=== PATIENT | female | born 1945 | race Caucasian/White ===

== ENCOUNTER → 2023-06-02 10:08 | Outpatient (BNVA) | payer MEDICARE, SELFPAY | PROVIDERS: Family Provider Physician Assistant Medical; PCP Family Medicine; Visit Provider Podiatrist Foot & Ankle Surgery | DX: S82.861A Displaced Maisonneuve's fracture of right leg, initial encounter for closed fracture (principal); X58.XXXA Exposure to other specified factors, initial encounter | CPT/HCPCS: 99203 ==

== ENCOUNTER → 2023-06-22 13:57 | Outpatient (BNVA) | payer MEDICARE, SELFPAY | PROVIDERS: Family Provider Physician Assistant Medical; PCP Family Medicine; Visit Provider Podiatrist Foot & Ankle Surgery | DX: S82.861A Displaced Maisonneuve's fracture of right leg, initial encounter for closed fracture (principal); X58.XXXA Exposure to other specified factors, initial encounter | CPT/HCPCS: 73590; 73610; 99213 ==

== ENCOUNTER → 2023-07-06 11:08 | Outpatient (BNVA) | payer MEDICARE, SELFPAY | PROVIDERS: Family Provider Physician Assistant Medical; PCP Family Medicine; Visit Provider Podiatrist Foot & Ankle Surgery | DX: S82.861A Displaced Maisonneuve's fracture of right leg, initial encounter for closed fracture (principal); X58.XXXA Exposure to other specified factors, initial encounter | CPT/HCPCS: 73590 ==

== ENCOUNTER 2024-05-31 20:24 | Emergency (ER) | payer MEDICARE, SELFPAY ==
[2024-05-31 20:27] VITALS: BP 120/58; PULSE 92; RESP 17; TEMP 36.7; O2SAT 98; BMI 27.4
--- NOTE | 2024-05-31 20:36 | ECG_ITS ---
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 Measurements Intervals [place] Rate: 61 P: 186 MT: 203 QRS: 16 QRSD: 89 T: 54 QT: 384 QTc: 387 Interpretive Statements SUPRAVENTRICULAR RHYTHM WITH BASELINE ARTIFACT NONSPECIFIC T-WAVE ABNORMALITY Compared to ECG 05/07/2016 11:44:46 T-wave abnormality now present Sinus tachycardia no longer present Myocardial infarct finding no longer present Electronically Signed On 06-02-2024 20:10:01 [employer] by Leon Real M.D. [email or web address]
--- NOTE | 2024-05-31 20:36 | ED_ITS ---
HPI - Syncope 2 General: Chief Complaint: Syncope Stated Complaint: syncope Time Seen by Provider: 05/31/24 20:25 History of Present Illness: Patient brought in by EMS for complaints of a syncopal episode. Patient was out eating with her family when she suddenly had a syncopal episode and she was out of it for approximately 3 minutes when she came to the nose she had a thready pulse and a low blood pressure. EMS arrived performed twelve-lead was essentially benign per them. Patient's blood pressure improved as did her pulse. Patient arrived to the ER with feeling almost back to normal. Patient [place] any chest pain nausea vomiting diarrhea shortness of breath Related Data Home Medications Medication Instructions Recorded Confirmed amlodipine 2.5 mg tablet 2.5 mg PO DAILY 06/02/23 07/06/23 atorvastatin 10 mg tablet 10 mg PO DAILY 06/02/23 07/06/23 calcium carbonate 600 mg PO DAILY 06/02/23 07/06/23 gabapentin 300 mg capsule 300 mg PO BID 06/02/23 07/06/23 letrozole 2.5 mg tablet 2.5 mg PO DAILY 06/02/23 07/06/23 levocetirizine 5 mg tablet 5 mg PO DAILY 06/02/23 07/06/23 metoprolol tartrate 25 mg tablet 12.5 mg PO BID 06/02/23 07/06/23 Allergies Allergy/AdvReac Type Severity Reaction Status Date / Time No Known Allergies Allergy Verified 05/31/24 20:36 Review of Systems 2 General: Reports: 10 or more systems reviewed and unremarkable except in HPI and below Physical Exam 2 Const: COMMON NORMALS: no acute distress, average body habitus, patient oriented x3, no limitations, healthy appearing, alert and well nourished HENMT: COMMON NORMALS: normocephalic, atraumatic, hearing grossly normal bilaterally, external ears normal, Normal external nose present and moist oral mucous membranes HEAD & SCALP: normocephalic and atraumatic NOSE: Normal external nose present EXTERNAL EAR: Yes external ears normal Neck/C-Spine: COMMON NORMALS: full ROM, no lymphadenopathy, supple, no meningeal signs, no JVD and Thyroid normal THYROID: Thyroid normal Chest: COMMONS NORMALS: normal inspection of the chest and normal palpation of entire chest wall Resp: COMMON NORMALS: normal respiratory effort, No retractions, No use of accessory muscles and clear to auscultation bilaterally AUSCULTATION: clear to auscultation bilaterally Cardio: COMMON NORMALS: no JVD, regular rate, regular rhythm, S1 normal heart sound present, S2 normal heart sound present, No gallops present (Cardio), No clicks present (Cardio), No murmurs present (Cardio) and No rub (Cardio) R ATE: regular rate RHYTHM: regular rhythm HEART SOUNDS: S1 normal heart sound present and S2 normal heart sound present GI: COMMON NORMALS: Normal to inspection, nondistended, normoactive bowel sounds present, Soft to palpation, non-tender, No hepatosplenomegaly present and no masses PALPATION: Yes Soft to palpation and Yes No hepatosplenomegaly present Neuro: COMMON NORMALS: patient oriented x3 SENSORIUM/ORIENTATION: Yes alert MENINGEAL SIGNS: Yes no meningeal signs Course 2 Vital Signs: Vital signs: Vital Signs Temperature 98.1 F 05/31/24 20: Pulse Rate 92 05/31/24 20: Respiratory Rate 17 05/31/24 20:27 Blood Pressure 120/58 05/31/24 20: Pulse Oximetry 98 05/31/24 20:27 MDM - Syncope Medical Decision Making Reviewed patient's workup lab work was obtained that included initial troponin of 8, EKG is unremarkable as well as her chest x-ray, patient refused second troponin. Patient will be discharged home with diagnosis syncope. Patient is feeling better and has no complaints currently. Medical Records I reviewed the patient's medical records. Lab Data I reviewed the patient's lab results. 05/31/24 20:25 05/31/24 20:25 Radiology Impressions Chest X-Ray 05/31/24 20:36 IMPRESSION: 1. Linear left lower chest pulmonary atelectasis or scarring. 2. Degenerative and postsurgical changes are demonstrated, as described above. Laboratory Results WBC 12.10 10^3/uL (3.29-11.43) H 05/31/24 20: RBC 4.50 10^6/uL (3.85-5.65) 05/31/24 20:25 Hgb 12.60 g/dL (11.27-16.99) 05/31/24 20:25 Hct 39.9 % (36-47) 05/31/24 20: MCV 88.7 fl (85-98) 05/31/24 20:25 MCH 28.0 pg (27-33) 05/31/24 20:25 MCHC 31.6 g/dL (30-55) 05/31/24 20:25 RDW 13.7 % (12.1-15.1) 05/31/24 20:25 Plt Count 189 10^3/cmm (157-399) 05/31/24 20:25 MPV 13.0 fL (7.4-10.4) H 05/31/24 20:25 Neut % (Auto) 64.6 % 05/31/24 20:25 Lymph % (Auto) 24.7 % 05/31/24 20:25 [place] % (Auto) 9.3 % 05/31/24 20:25 Eos % (Auto) 0.7 % 05/31/24 20:25 Baso % (Auto) 0.2 % 05/31/24 20:25 Neut # (Auto) 7.80 10^3/uL (1.8-7.7) H 05/31/24 20:25 Lymph # (Auto) 3.0 10^3/uL (0.8-4.8) 05/31/24 20:25 [place] # (Auto) 1.1 10^3/uL (0.2-0.9) H 05/31/24 20:25 Eos # (Auto) 0.1 10^3/uL (0.0-0.8) 05/31/24 20:25 Baso # (Auto) 0.0 10^3/uL (0.0-0.1) 05/31/24 20: Nucleated RBC % (auto) 0 % 05/31/24 20:25 Nucleated RBCs # 0.0 /100WBC 05/31/24 20:25 Sodium 142 mmol/L (136-145) 05/31/24 20:25 Potassium 4.0 mmol/L (3.5-5.1) 05/31/24 20:25 Chloride 104 mmol/L (98-107) 05/31/24 20:25 Carbon Dioxide 26 mmol/L (22-29) 05/31/24 20:25 Anion Gap 16.0 (5-19) 05/31/24 20:25 BUN 16 mg/dL (8-23) 05/31/24 20:25 Creatinine 1.3 mg/dL (0.5-0.9) H 05/31/24 20:25 GFR Calculation Not Reportable 05/31/24 20:25 Glucose 160 mg/dL (65-115) H 05/31/24 20:25 Calculated Osmolality 299 mOsm/kg (285-295) H 05/31/24 20:25 Calcium 11.4 mg/dL (8.5-10.5) H 05/31/24 20:25 Magnesium 1.8 mg/dL (1.7-2.3) 05/31/24 20:25 Total Bilirubin 1.0 mg/dL (0.15-1.2) 05/31/24 20:25 AST 21 U/L (0-32) 05/31/24 20:25 ALT 15 U/L (0-33) 05/31/24 20:25 Alkaline Phosphatase 99 U/L (35-105) 05/31/24 20:25 Troponin T Baseline 8 ng/L (0-10) 05/31/24 20:25 Total Protein 6.0 g/dL (6.6-8.7) L 05/31/24 20:25 Albumin 3.8 g/dL (3.5-5.2) 05/31/24 20:25 Globulin 2.2 g/dL (1.3-4.6) 05/31/24 20:25 All radiology interpretation(s) finalized by discharge Discharge Plan Discharge Patient Disposition: Home Clinical Impression: Syncope Qualifiers: Syncope type: unspecified Qualified Code(s): R55 - Syncope and collapse Condition: Stable Prescriptions: No Action gabapentin 300 mg capsule 300 mg PO BID letrozole 2.5 mg tablet 2.5 mg PO DAILY atorvastatin 10 mg tablet 10 mg PO DAILY calcium carbonate 600 mg calcium (1,500 mg) tablet 600 mg PO DAILY amlodipine 2.5 mg tablet 2.5 mg PO DAILY metoprolol tartrate 25 mg tablet 12.5 mg PO BID levocetirizine 5 mg tablet 5 mg PO DAILY Discharge Orders: Discharge ED (Routine); Ordered 05/31/24 Ordered By: Osmel Garcia Referrals: Fadi Malik [Referring] - Dez Olvera [Primary Care Provider] - 1 week Patient Instructions: Syncope Activity Restrictions/Additional Instructions: Thank you for choosing [facility] for your healthcare needs today. Please realize that you were seen in the emergency department and that we are providing you with an emergency medical screening exam and this may not be a complete and all exclusive of all testing and/or medical workup we may need to determine your element or severity of your illness. It is very important that you follow-up as instructed with your primary care provider or specialist for the additional evaluation and to discuss your medical treatment plan. You may return to the emergency department should you have concerns or if your condition changes or worsens in any way. Coding Level of Care Code ED Concrete Vibrator Operator for Kirk Ferrell
--- NOTE | 2024-05-31 20:36 | XRR_ITS ---
PROCEDURE INFORMATION: Exam: XR Chest Exam date and time: 05/31/2024 9:05 PM Age: 78 years old Clinical indication: Other: Syncope; Prior surgery; Surgery date: 6+ months; Surgery type: RT lumpectomy; Pacemaker TECHNIQUE: Imaging protocol: Radiologic exam of the chest. Views: 1 view. COMPARISON: No relevant prior studies available. FINDINGS: Tubes, catheters and devices: Left chest pacemaker device is demonstrated. Surgical clip overlies the right axillary region. Lungs: Lung volumes are decreased. Linear density identified within left lower lung. Possible atelectasis or scarring. Pleural and lung parenchymal linear scarring identified within bilateral apices. Pleural spaces: No pleural effusion identified. No pneumothorax identified. Heart/Mediastinum: Coronary arterial stent identified. Vasculature: Moderate to severe atherosclerotic calcification demonstrated within the aorta. Bones/joints: Diffusely decreased bone density. Generalized bony degenerative changes. XR/XR chest 1V portable [id number] IMPRESSION: 1. Linear left lower chest pulmonary atelectasis or scarring. 2. Degenerative and postsurgical changes are demonstrated, as described above.
[2024-05-31 20:44] LABS: Basophils % 0.2 %; Eosinophils # 0.1 10^3/uL (0.0-0.8); Eosinophils % 0.7 %; Hematocrit 39.9 % (36-47); Lymphocytes % 24.7 %; Mean Corpuscular HGB Conc 31.6 g/dL (30-55); Mean Corpuscular Volume 88.7 fl (85-98); Monocytes # 1.1 10^3/uL (0.2-0.9); Monocytes % 9.3 %; Neutrophils % 64.6 %; Nucleated Red Blood Cells % 0 %; Platelet Count 189 10^3/cmm (157-399); Red Cell Distribution Width 13.7 % (12.1-15.1)
[2024-05-31 21:07] LABS: Alanine Aminotransferase 15 U/L (0-33); Albumin Level 3.8 g/dL (3.5-5.2); Alkaline Phosphatase 99 U/L (35-105); Aspartate Amino Transferase 21 U/L (0-32); Blood Urea Nitrogen 16 mg/dL (8-23); Calcium 11.4 mg/dL (8.5-10.5); Carbon Dioxide 26 mmol/L (22-29); Chloride 104 mmol/L (98-107); Creatinine Clr Calc Pharmacy 31.2079; Globulin 2.2 g/dL (1.3-4.6); Glucose 160 mg/dL (65-115); Magnesium 1.8 mg/dL (1.7-2.3); Osmolality Calculated 299 mOsm/kg (285-295); Sodium 142 mmol/L (136-145)
[2024-05-31 21:19] LABS: Troponin(5th) Baseline 8 ng/L (0-10)
[2024-05-31 23:11] VITALS: BP 122/80; PULSE 81; RESP 20; O2SAT 96
== END 2024-05-31 23:12 | disposition home or self-care (01) ==
PROVIDERS: Emergency Provider Emergency Medicine; PCP Family Medicine
DX: R55 Syncope and collapse (principal)
CPT/HCPCS: 71045; 80053; 83735; 84484; 85025; 93005; 99285

== ENCOUNTER → 2024-08-08 13:16 | Outpatient (BNVA) | payer MEDICARE, SELFPAY | PROVIDERS: PCP Family Medicine; Visit Provider Podiatrist Foot & Ankle Surgery | DX: S82.831A Other fracture of upper and lower end of right fibula, initial encounter for closed fracture (principal); X58.XXXA Exposure to other specified factors, initial encounter | CPT/HCPCS: 73610; 99213 ==

== ENCOUNTER 2024-08-14 11:32 | Emergency (ER) | payer MEDICARE, SELFPAY ==
[2024-08-14 11:44] VITALS: BP 108/67; PULSE 73; RESP 17; TEMP 36.7; O2SAT 99; BMI 30.7
--- NOTE | 2024-08-14 11:53 | W.ED.EXTPRO ---
HPI - Extremity Problem General: Chief complaint: Extremity Injury, Lower Stated complaint: rt ankle inj (redness) Time Seen by Provider: 08/14/24 11:38 Source: patient Mode of arrival: ambulatory Limitations: no limitations History of Present Illness: 79-year-old female who states that she had fractured her right ankle last week. She states that she been wearing a walking boot states she had some slight erythema to the right lateral aspect of her ankle and was concerned about infection she denies any fevers she has had some increased pain she has been nonweightbearing she is following with podiatry. Associated symptoms: Deny chest pain, fever(s) or rash Related Data Home Medications ?Medication ?Instructions ?Recorded ?Confirmed amlodipine 2.5 mg tablet 2.5 mg PO DAILY 06/02/23 08/08/24 atorvastatin 10 mg tablet 10 mg PO DAILY 06/02/23 08/08/24 calcium carbonate 600 mg PO DAILY 06/02/23 08/08/24 gabapentin 300 mg capsule 300 mg PO BID 06/02/23 08/08/24 letrozole 2.5 mg tablet 2.5 mg PO DAILY 06/02/23 08/08/24 levocetirizine 5 mg tablet 5 mg PO DAILY 06/02/23 08/08/24 metoprolol tartrate 25 mg tablet 12.5 mg PO BID 06/02/23 08/08/24 Allergies Allergy/AdvReac Type Severity Reaction Status Date / Time No Known Allergies Allergy Verified 08/08/24 13:22 Review of Systems Const: Denies: fever(s), chills, body aches or change in appetite ENMT: Denies: throat pain or dental pain Card: Denies: chest pain Resp: Denies: dyspnea GI: Denies: abdominal pain, nausea, vomiting or diarrhea Musc: Reports: extremity pain; Denies: neck pain or back pain Skin/Breast: Reports: erythema; Denies: rash Neuro: Denies: headache(s) PFSH ED PFSH: Social History Smoking and tobacco/nicotine status: unknown if used tobacco/nicotine Physical Exam Const: COMMON NORMALS: no acute distress, patient oriented x3 and healthy appearing HENMT: COMMON NORMALS: normocephalic and atraumatic HEAD & SCALP: normocephalic and atraumatic Neck/C-Spine: COMMON NORMALS: full ROM and supple Chest: COMMONS NORMALS: normal inspection of the chest Resp: COMMON NORMALS: normal respiratory effort Cardio: COMMON NORMALS: regular rate, regular rhythm and No murmurs present (Cardio) RATE: regular rate RHYTHM: regular rhythm Extremity: NARRATIVE EXTREMITY EXAM: slight erythema to right lateral ankle Neuro: COMMON NORMALS: patient oriented x3, moves all extremities and no focal motor deficits Psych: COMMON NORMALS: mental status grossly normal, Normal thought process present and cooperative THOUGHT PROCESS: Normal thought process present Skin: COMMON NORMALS: no rashes or lesions noted and no wounds GENERAL SKIN EXAM: no rashes or lesions noted Course Vital Signs: Vital signs: Vital Signs Temperature 98.1 F 08/14/24 11:44 Pulse Rate 61 08/14/24 12:47 Respiratory Rate 17 08/14/24 11:44 Blood Pressure 152/59 08/14/24 12:47 Pulse Oximetry 99 08/14/24 12:47 Oxygen Delivery Me thod Room Air 08/14/24 12:47 MDM - Extremity (Nontraumatic) Medical Decision Making Patient presents here with pain to her right ankle slight rash is likely rubbing from her boot her inflammatory markers are normal I did show image with Dr. Turner who agrees will follow her up next week at his office return if worsening Medical Records I reviewed the patient's medical records. Lab Data I reviewed the patient's lab results. 08/14/24 12:10 Laboratory Results WBC 11.69 10^3/uL (3.29-11.43) H 08/14/24 12:10 RBC 3.80 10^6/uL (3.85-5.65) L 08/14/24 12:10 Hgb 10.90 g/dL (11.27-16.99) L 08/14/24 12:10 Hct 34.2 % (36-47) L 08/14/24 12:10 MCV 90.0 fl (85-98) 08/14/24 12:10 MCH 28.7 pg (27-33) 08/14/24 12:10 MCHC 31.9 g/dL (30-55) 08/14/24 12:10 RDW 13.7 % (12.1-15.1) 08/14/24 12:10 Plt Count 190 10^3/cmm (157-399) 08/14/24 12:10 MPV 11.2 fL (7.4-10.4) H 08/14/24 12:10 Neut % (Auto) 75.6 % 08/14/24 12:10 Lymph % (Auto) 13.8 % 08/14/24 12:10 [facility] % (Auto) 9.4 % 08/14/24 12:10 Eos % (Auto) 0.4 % 08/14/24 12:10 Baso % (Auto) 0.3 % 08/14/24 12:10 Neut # (Auto) 8.84 10^3/uL (1.8-7.7) H 08/14/24 12:10 Lymph # (Auto) 1.6 10^3/uL (0.8-4.8) 08/14/24 12:10 [facility] # (Auto) 1.1 10^3/uL (0.2-0.9) H 08/14/24 12:10 Eos # (Auto) 0.1 10^3/uL (0.0-0.8) 08/14/24 12:10 Baso # (Auto) 0.0 10^3/uL (0.0-0.1) 08/14/24 12:10 Nucleated RBC % (auto) 0 % 08/14/24 12:10 Nucleated RBCs # 0.0 /100WBC 08/14/24 12:10 ESR 5 mm/hr (0-15) 08/14/24 12:10 C-Reactive Protein 3.5 mg/L (0.0-4.9) 08/14/24 12:10 All radiology interpretation(s) finalized by discharge Discharge Plan Discharge Patient Disposition: Home Clinical Impression: Closed fracture of right distal fibula, Rash Condition: Stable Prescriptions: No Action gabapentin 300 mg capsule 300 mg PO BID letrozole 2.5 mg tablet 2.5 mg PO DAILY atorvastatin 10 mg tablet 10 mg PO DAILY calcium carbonate 600 mg calcium (1,500 mg) tablet 600 mg PO DAILY amlodipine 2.5 mg tablet 2.5 mg PO DAILY metoprolol tartrate 25 mg tablet 12.5 mg PO BID levocetirizine 5 mg tablet 5 mg PO DAILY Discharge Orders: Discharge ED (Routine); Ordered 08/14/24 Ordered By: Rebekah Story Referrals: Olivier Fernandez DPM [Physician] - 1-3 days Dez Olvera [Primary Care Provider] - Discharge Diet: Advance as tolerated Discharge Activity: Resume usual activity Patient Instructions: Ankle Fracture (ED), Acute Rash (ED) Print Language: Malawian Coding Level of Care Code ED Public Health Program Manager for Kirk Ferrell
--- NOTE | 2024-08-14 12:18 | XR_ITS ---
WS: [id number] Right ankle, 3 views, 08/14/2024 Clinical Data: injury Comparison: Right ankle, 08/08/2024 Findings: The undisplaced fracture of the distal right fibula is still visible. There is soft tissue swelling over the lateral malleolus. The remainder of the ankle shows no change. XR/XR ankle RT min 3V* [id number] Impression: No change in fracture of distal right fibula.
[2024-08-14 12:19] LABS: Basophils % 0.3 %; Eosinophils # 0.1 10^3/uL (0.0-0.8); Eosinophils % 0.4 %; Hematocrit 34.2 % (36-47); Lymphocytes # 1.6 10^3/uL (0.8-4.8); Lymphocytes % 13.8 %; Mean Corpuscular HGB Conc 31.9 g/dL (30-55); Mean Corpuscular Hemoglobin 28.7 pg (27-33); Mean Platelet Volume 11.2 fL (7.4-10.4); Monocytes # 1.1 10^3/uL (0.2-0.9); Monocytes % 9.4 %; Neutrophils # 8.84 10^3/uL (1.8-7.7); Neutrophils % 75.6 %; Nucleated Red Blood Cells % 0 %; Platelet Count 190 10^3/cmm (157-399); Red Cell Distribution Width 13.7 % (12.1-15.1); White Blood Count 11.69 10^3/uL (3.29-11.43)
[2024-08-14 12:33] LABS: C Reactive Protein 3.5 mg/L (0.0-4.9)
[2024-08-14 12:34] LABS: Erythrocyte Sedimentation Rate 5 mm/hr (0-15)
[2024-08-14] MEDS: HYDROcodone-acetaminophen 5-325 mg Tablet 1 TAB PO (12:43)
[2024-08-14 12:47] VITALS: BP 152/59; PULSE 61; O2SAT 99
[2024-08-14 13:16] VITALS: BP 123/57; PULSE 65; O2SAT 97
== END 2024-08-14 13:17 | disposition home or self-care (01) ==
PROVIDERS: Emergency Provider Emergency Medicine; PCP Family Medicine
DX: S82.401D Unspecified fracture of shaft of right fibula, subsequent encounter for closed fracture with routine healing (principal); R21 Rash and other nonspecific skin eruption; X58.XXXD Exposure to other specified factors, subsequent encounter
CPT/HCPCS: 36415; 73610; 85025; 85651; 86140; 99284

== ENCOUNTER → 2024-08-22 13:58 | Outpatient (BNVA) | payer MEDICARE, SELFPAY | PROVIDERS: PCP Family Medicine; Visit Provider Podiatrist Foot & Ankle Surgery | DX: S82.831A Other fracture of upper and lower end of right fibula, initial encounter for closed fracture (principal); X58.XXXA Exposure to other specified factors, initial encounter | CPT/HCPCS: 73610; 99213 ==

== ENCOUNTER → 2024-09-12 13:23 | Outpatient (BNVA) | payer MEDICARE, SELFPAY | PROVIDERS: PCP Family Medicine; Visit Provider Podiatrist Foot & Ankle Surgery | DX: S82.831A Other fracture of upper and lower end of right fibula, initial encounter for closed fracture (principal); X58.XXXA Exposure to other specified factors, initial encounter | CPT/HCPCS: 73610; 99213 ==

== ENCOUNTER 2024-10-03 14:26 | Outpatient (CLI) | payer MEDICARE, SELFPAY | END 2024-10-03 14:27 | disposition home or self-care (01) | LOC: SPT 14:27 | PROVIDERS: PCP Family Medicine; Visit Provider Podiatrist Foot & Ankle Surgery | DX: Z46.89 Encounter for fitting and adjustment of other specified devices (principal); S82.831D Other fracture of upper and lower end of right fibula, subsequent encounter for closed fracture with routine healing; X58.XXXD Exposure to other specified factors, subsequent encounter | CPT/HCPCS: 97760; L1902 ==

== ENCOUNTER → 2024-11-07 14:24 | Outpatient (BNVA) | payer MEDICARE, SELFPAY | PROVIDERS: PCP Family Medicine; Visit Provider Podiatrist Foot & Ankle Surgery | DX: S82.831D Other fracture of upper and lower end of right fibula, subsequent encounter for closed fracture with routine healing (principal); X58.XXXD Exposure to other specified factors, subsequent encounter | CPT/HCPCS: 99213 ==